=== PATIENT | male | born 1975 | race African-American/Black ===

== ENCOUNTER → 2020-03-29 | Outpatient (CLI) | payer BC, OTHER ==
--- NOTE | 2020-03-29 14:08 | RADIOLOGY REPORT (SQ) ---
EXAM DESCRIPTION: U/S NON-OB PELVIS W/O DOP IMAGES COMPLETED DATE/TIME: 03/29/2020 1:32 pm REASON FOR STUDY: (R10.30)LOWER ABDOMINAL PAIN, UNSPECIFIED R10.30 LOWER ABDOMINAL PAIN, UNSPECIFIE D COMPARISON: None. TECHNIQUE: Dynamic and static grayscale images acquired of the localized site of clinical concern an d recorded on PACS. Additional selected color Doppler and spectral images recorded. SITE OF CONCERN: Right lower quadrant LIMITATIONS: None. FINDINGS: SKIN AND SUBCUTANEOUS TISSUES: No masses. No fluid collections. No edema. No foreign katerine s. DEEP SOFT TISSUES/MUSCLES: There is a hypoechoic tubular structure within the right lower quadrant me asuring approximately 3.3 x 1.2 x 5.1 cm which appears to peristalse. No other discrete collections. No discrete soft tissue masses. VASCULAR: No increased or decreased vascularity. OTHER: No other significant finding. IMPRESSION: 1. No subcutaneous mass or fluid collection. No discrete hernia. 2. Partially visualized hypoechoic tubular structure within the right lower quadrant which appears t o peristalse. Findings favored to represent a fluid-filled bowel loop although intra-abdominal colle ction is not entirely excluded. CT with contrast could be considered for more complete characterizat ion. TECHNICAL DOCUMENTATION: JOB ID: [id number] [employer]- All Rights Reserved Reading location - IP/workstation name: [email or web address]
== END ==
LOC: RAD 03-25 10:08
PROVIDERS: ATTEND Internal Medicine
DX: R10.30 Lower abdominal pain, unspecified (principal)
CPT/HCPCS: 76856